=== PATIENT | female | born 1965 | race Caucasian/White ===

== ENCOUNTER 2016-09-15 15:42 | Inpatient (IN) | payer OTHER ==
[2016-09-15] VITALS (23 sets, daily range): BP systolic 120–177; BP diastolic 66–101
[~2016-09-15] VITALS: Ht 152.4 cm; Wt 110.9 kg
[2016-09-15] MEDS ORDERED: METHYLPREDNISOLONE SOD SUCC 125 MG/2 ML VIAL IV ONE (17:45)
[2016-09-15] MEDS ORDERED: SODIUM CHLORIDE 0.45% 1,000 ML IV SCH (17:45)
[2016-09-15] MEDS ORDERED: METHYLPREDNISOLONE SOD SUCC 1,000 MG in DEXT 5% WATER 100 ML IV SCH (20:00)
[2016-09-15] MEDS ORDERED: VASOPRESSIN 10 UNIT in SODIUM CHLORIDE 0.9% 99.5 ML IV SCH (20:00)
[2016-09-15 20:10] LABS: BASOPHILS % 0.2 % (0.0-2.0); HEMATOCRIT. 33.6 % (36.0-48.0); HEMOGLOBIN. 11.4 g/dL (12.0-16.0); MEAN CORPUSCULAR HEMOGLOBIN 30.9 pg (28.0-32.0); MEAN CORPUSCULAR VOLUME 90.8 fL (81.0-99.0); MEAN PLATELET VOLUME 9.7 fl (7.4-10.4); MONOCYTES % 4.2 % (2.0-8.0); NEUTROPHILS % 83.6 % (40.0-76.0); PLATELET 60 x1000/uL (130-400); RED CELL DISTRIBUTION WIDTH 14.7 % (11.6-14.6)
[2016-09-15 20:14] LABS: CHLORIDE 127 mEq/L (98-107)
[2016-09-15 20:15] LABS: PROTHROMBIN TIME 10.7 sec
[2016-09-15] MEDS: VASOPRESSIN 10 UNIT in SODIUM CHLORIDE 0.9% 99.5 ML IV SCH (20:19)
[2016-09-15 20:22] LABS: AMYLASE 163 IU/L (25-115); CARBON DIOXIDE 26 mEq/L (21-32); GAMMA GLUTAMYL TRANSPEPTIDASE 67 IU/L (7-32)
[2016-09-15 20:29] LABS: CREATINE KINASE MB FRACTION 5.1 ng/mL (0.5-3.6)
[2016-09-15] MEDS ORDERED: HETASTARCH/NORMAL SALINE 500 ML PLAST..BAG IV NR (20:30)
[2016-09-15 20:32] LABS: BG BASE EXCESS -0.5 mmol/L (-2.0-2.0); BG CARBOXYHEMOGLOBIN 0.3 % (0.5-1.5); BG DEOXYHEMOGLOBIN 4.4 % (0.0-5.0); BG FRACTION INSPIRED OXYGEN 100; BG HCO3 ACT 22.9 mmol/L (22.0-26.0); BG METHEMOGLOBIN 0.4 % (0.0-1.5); BG OXYGEN SATURATION 95.6 % (92.0-98.5); BG OXYHEMOGLOBIN 94.9 % (94.0-97.0); BG PCO2 33.7 mmHg (35.0-45.0); BG PO2 75.4 mmHg (75.0-100.0); BG SAMPLE SITE A-LINE; BG TIDAL VOLUME(mL) 500 mL; BG TOTAL HEMOGLOBIN 12.5 g/dL (12.0-18.0); BG VENT MODE VENT - A/C; BG VENT RATE 22 set
[2016-09-15 20:33] LABS: CREATINE KINASE 1657 IU/L (26-192)
[2016-09-15] MEDS ORDERED: HETASTARCH/NORMAL SALINE 500 ML IV NR (21:00)
[2016-09-15] MEDS: PIPERACILLIN/TAZ 3.375G PREMIX 50 ML IV SCH (21:37)
[2016-09-15] MEDS: ERYTHROMYCIN LACTOBIONATE 500 MG in SODIUM CHLORIDE 0.9% 100 ML IV SCH (21:39)
[2016-09-16] VITALS (106 sets, daily range): BP systolic 87–202; BP diastolic 49–115
[2016-09-16] MEDS ORDERED: CALCIUM GLUCONATE 100MG/ML 10ML VIAL IV NR ×2 (00:30→01:30)
[2016-09-16] MEDS: VASOPRESSIN 10 UNIT in SODIUM CHLORIDE 0.9% 99.5 ML IV SCH (00:32)
[2016-09-16] MEDS ORDERED: MAGNESIUM 2 G PREMIX 50 ML IV NR ×2 (01:00→17:00)
[2016-09-16] MEDS ORDERED: POTASSIUM PHOS,M-BASIC-D-BASIC 30 MMOL in SODIUM CHLORIDE 0.9% 500 ML IV NR (01:00)
[2016-09-16 01:24] LABS: BASOPHILS % 0.3 % (0.0-2.0); EOSINOPHILS % 0.1 % (0.0-5.0); HEMATOCRIT. 30.2 % (36.0-48.0); HEMOGLOBIN. 10.5 g/dL (12.0-16.0); LYMPHOCYTES % 12.3 % (20.0-50.0); MEAN CORPUSCULAR HEMOGLOBIN 31.4 pg (28.0-32.0); MEAN CORPUSCULAR VOLUME 90.4 fL (81.0-99.0); MEAN PLATELET VOLUME 9.9 fl (7.4-10.4); MONOCYTES % 3.9 % (2.0-8.0); NEUTROPHILS % 83.4 % (40.0-76.0); PLATELET 56 x1000/uL (130-400); RED BLOOD CELL COUNT 3.34 mill/uL (4.2-5.4); RED CELL DISTRIBUTION WIDTH 14.7 % (11.6-14.6)
[2016-09-16 01:32] LABS: INR 1.1; PARTIAL THROMBOPLASTIN TIME 30.3 sec (24.0-34.0)
[2016-09-16 01:54] LABS: BG BASE EXCESS -10.4 mmol/L (-2.0-2.0); BG CARBOXYHEMOGLOBIN 0.3 % (0.5-1.5); BG FRACTION INSPIRED OXYGEN 100; BG HCO3 ACT 13.5 mmol/L (22.0-26.0); BG METHEMOGLOBIN 0.6 % (0.0-1.5); BG OXYHEMOGLOBIN 98.1 % (94.0-97.0); BG PCO2 23.3 mmHg (35.0-45.0); BG PO2 378.1 mmHg (75.0-100.0); BG SAMPLE SITE A-LINE; BG TOTAL HEMOGLOBIN 7.7 g/dL (12.0-18.0); BG VENT MODE VENT - PCV; BG VENT RATE 10 set
[2016-09-16 01:55] LABS: AMYLASE 233 IU/L (25-115); CARBON DIOXIDE 24 mEq/L (21-32); CHLORIDE 126 mEq/L (98-107); GAMMA GLUTAMYL TRANSPEPTIDASE 76 IU/L (7-32); PHOSPHORUS 2.2 mg/dL (2.5-4.9); TROPONIN I 0.22 ng/mL (0.00-0.04)
[2016-09-16] MEDS ORDERED: METHYLPREDNISOLONE 125MG 250 MG in DEXT 5% WATER 100 ML IV SCH (02:00)
[2016-09-16 02:02] LABS: CREATINE KINASE MB FRACTION 4.6 ng/mL (0.5-3.6)
[2016-09-16 02:07] LABS: CREATINE KINASE 1494 IU/L (26-192)
[2016-09-16] MEDS: DEXT 5% IV SCH ×3 (02:48→17:55)
[2016-09-16] MEDS: WATER IV SCH ×3 (02:48→17:55)
[2016-09-16] MEDS: METHYLPREDNISOLONE IV SCH ×3 (02:48→17:55)
[2016-09-16] MEDS ORDERED: FUROSEMIDE 40MG/4ML VIAL IVP NR ×3 (03:00→16:00)
[2016-09-16] MEDS ORDERED: ALBUMIN HUMAN 25GM/100ML (25%) IV NR ×2 (03:30→17:00)
[2016-09-16] MEDS ORDERED: SODIUM CHLORIDE 0.9% IV SCH ×2 (04:12→04:45)
[2016-09-16] MEDS ORDERED: VASOPRESSIN IV SCH ×2 (04:12→04:45)
[2016-09-16] MEDS ORDERED: INSULIN REGULAR (HUMULIN R) UD 100 UNITS/ML SYR IV NR (04:30)
[2016-09-16] MEDS ORDERED: NOREPINEPHRINE 4 MG in DEXT 5% WATER 246 ML IV PRN (05:00)
[2016-09-16] MEDS ORDERED: DOBUTAMINE HCL 500 MG in DEXT 5% WATER 210 ML IV STA (05:12)
[2016-09-16] MEDS: ERYTHROMYCIN LACTOBIONATE 500 MG in SODIUM CHLORIDE 0.9% 100 ML IV SCH ×3 (05:19→22:10)
[2016-09-16] MEDS: PIPERACILLIN/TAZ 3.375G PREMIX 50 ML IV SCH ×3 (05:19→21:20)
[2016-09-16] MEDS ORDERED: CALCIUM GLUCONATE 100MG/ML 10ML VIAL IV STA (05:20)
[2016-09-16 05:42] LABS: BASOPHILS % 0.1 % (0.0-2.0); HEMATOCRIT. 31.4 % (36.0-48.0); HEMOGLOBIN. 10.8 g/dL (12.0-16.0); LYMPHOCYTES % 13.3 % (20.0-50.0); MEAN CORPUSCULAR HEMOGLOBIN 31.3 pg (28.0-32.0); MEAN CORPUSCULAR VOLUME 91.1 fL (81.0-99.0); MONOCYTES % 1.2 % (2.0-8.0); NEUTROPHILS % 85.4 % (40.0-76.0); PLATELET 54 x1000/uL (130-400); RED BLOOD CELL COUNT 3.45 mill/uL (4.2-5.4); RED CELL DISTRIBUTION WIDTH 14.4 % (11.6-14.6)
[2016-09-16 06:03] LABS: CHLORIDE 119 mEq/L (98-107)
[2016-09-16 06:08] LABS: CARBON DIOXIDE 25 mEq/L (21-32)
[2016-09-16] MEDS ORDERED: CALCIUM GLUCONATE 1,000 MG in SODIUM CHLORIDE 0.9% 50 ML IV ONE (06:30)
[2016-09-16] MEDS ORDERED: POTASSIUM CHLORIDE IV NR ×2 (06:30→17:00)
[2016-09-16] MEDS ORDERED: SODIUM CHLORIDE 0.9% IV NR ×2 (06:30→17:00)
[2016-09-16 06:52] LABS: AMYLASE 330 IU/L (25-115); CARBON DIOXIDE 22 mEq/L (21-32); CHLORIDE 120 mEq/L (98-107); PHOSPHORUS 5.8 mg/dL (2.5-4.9); TROPONIN I 0.17 ng/mL (0.00-0.04)
[2016-09-16] MEDS ORDERED: ALBUMIN HUMAN 25GM/100ML (25%) IV STA (06:52)
[2016-09-16 06:59] LABS: CREATINE KINASE MB FRACTION 3.6 ng/mL (0.5-3.6)
[2016-09-16 07:05] LABS: CREATINE KINASE 1208 IU/L (26-192); GAMMA GLUTAMYL TRANSPEPTIDASE 92 IU/L (7-32)
[2016-09-16 07:14] LABS: GLUCOSE URINE NEGATIVE (NEGATIVE); KETONES URINE NEGATIVE (NEGATIVE); LEUKOCYTE ESTERASE URINE NEGATIVE (NEGATIVE); NITRITE URINE NEGATIVE (NEGATIVE); OCCULT BLOOD URINE TRACE (NEGATIVE); PROTEIN URINE NEGATIVE (NEGATIVE); SPECIFIC GRAVITY URINE 1.008 (1.005-1.030); UROBILINOGEN URINE 0.2 E.U./dL (0.2-1.0)
[2016-09-16 07:22] LABS: CLARITY URINE CLEAR (CLEAR); COLOR URINE PALE YELLOW (YELLOW)
[2016-09-16 07:42] LABS: CLARITY URINE CLOUDY (CLEAR); COLOR URINE YELLOW (YELLOW); GLUCOSE URINE TRACE (NEGATIVE); KETONES URINE NEGATIVE (NEGATIVE); LEUKOCYTE ESTERASE URINE NEGATIVE (NEGATIVE); NITRITE URINE NEGATIVE (NEGATIVE); OCCULT BLOOD URINE 2+ (NEGATIVE); PROTEIN URINE 2+ (NEGATIVE); SPECIFIC GRAVITY URINE 1.047 (1.005-1.030); UROBILINOGEN URINE 0.2 E.U./dL (0.2-1.0)
[2016-09-16 08:20] LABS: BG CARBOXYHEMOGLOBIN 0.3 % (0.5-1.5); BG DEOXYHEMOGLOBIN 3.4 % (0.0-5.0); BG FRACTION INSPIRED OXYGEN 40; BG HCO3 ACT 22.3 mmol/L (22.0-26.0); BG METHEMOGLOBIN 0.4 % (0.0-1.5); BG OXYGEN SATURATION 96.6 % (92.0-98.5); BG OXYHEMOGLOBIN 95.9 % (94.0-97.0); BG PCO2 45.8 mmHg (35.0-45.0); BG PH 7.305 (7.350-7.450); BG SAMPLE SITE A-LINE; BG TOTAL HEMOGLOBIN 11.8 g/dL (12.0-18.0); BG VENT MODE VENT - PCV; BG VENT RATE 10 set
[2016-09-16] MEDS: INSULIN REGULAR (DRIP) 100 UNITS in SODIUM CHLORIDE 0.9% 99 ML IV PRN ×2 (08:49→17:56)
[2016-09-16 09:13] LABS: INR 1.1; PARTIAL THROMBOPLASTIN TIME 32.2 sec (24.0-34.0); PROTHROMBIN TIME 11.2 sec
[2016-09-16 12:00] LABS: CLARITY URINE CLEAR (CLEAR); COLOR URINE YELLOW (YELLOW); GLUCOSE URINE NEGATIVE (NEGATIVE); KETONES URINE NEGATIVE (NEGATIVE); LEUKOCYTE ESTERASE URINE NEGATIVE (NEGATIVE); NITRITE URINE NEGATIVE (NEGATIVE); OCCULT BLOOD URINE 2+ (NEGATIVE); PROTEIN URINE NEGATIVE (NEGATIVE); SPECIFIC GRAVITY URINE 1.011 (1.005-1.030); UROBILINOGEN URINE 0.2 E.U./dL (0.2-1.0)
[2016-09-16 13:11] LABS: BG BASE EXCESS 0.2 mmol/L (-2.0-2.0); BG CARBOXYHEMOGLOBIN 0.3 % (0.5-1.5); BG DEOXYHEMOGLOBIN 1.9 % (0.0-5.0); BG FRACTION INSPIRED OXYGEN 40; BG HCO3 ACT 25.6 mmol/L (22.0-26.0); BG METHEMOGLOBIN 0.2 % (0.0-1.5); BG OXYGEN SATURATION 98.1 % (92.0-98.5); BG OXYHEMOGLOBIN 97.6 % (94.0-97.0); BG PCO2 44.5 mmHg (35.0-45.0); BG PH 7.377 (7.350-7.450); BG PO2 132.2 mmHg (75.0-100.0); BG SAMPLE SITE A-LINE; BG TOTAL HEMOGLOBIN 11.1 g/dL (12.0-18.0); BG VENT MODE VENT - PCV; BG VENT RATE 10 set
[2016-09-16 13:14] LABS: BASOPHILS % 0.1 % (0.0-2.0); EOSINOPHILS % 0.1 % (0.0-5.0); HEMATOCRIT. 30.6 % (36.0-48.0); HEMOGLOBIN. 10.3 g/dL (12.0-16.0); LYMPHOCYTES % 13.8 % (20.0-50.0); MEAN CORPUSCULAR HEMOGLOBIN 30.6 pg (28.0-32.0); MEAN CORPUSCULAR VOLUME 90.9 fL (81.0-99.0); MEAN PLATELET VOLUME 10.2 fl (7.4-10.4); MONOCYTES % 2.5 % (2.0-8.0); NEUTROPHILS % 83.5 % (40.0-76.0); RED BLOOD CELL COUNT 3.37 mill/uL (4.2-5.4); RED CELL DISTRIBUTION WIDTH 14.7 % (11.6-14.6)
[2016-09-16 13:21] LABS: PLATELET 49 x1000/uL (130-400)
[2016-09-16] MEDS ORDERED: LIDOCAINE HCL 1% 20ML VIAL (Pyxis) INJ ONE (13:30)
[2016-09-16] MEDS ORDERED: IODIXANOL 320MG/ML 100 ML BOTTLE IV ONE (13:31)
[2016-09-16 13:45] LABS: AMYLASE 357 IU/L (25-115); CARBON DIOXIDE 27 mEq/L (21-32); CHLORIDE 114 mEq/L (98-107); GAMMA GLUTAMYL TRANSPEPTIDASE 114 IU/L (7-32); PHOSPHORUS 4.4 mg/dL (2.5-4.9); TROPONIN I 0.12 ng/mL (0.00-0.04)
[2016-09-16 13:49] LABS: CREATINE KINASE 949 IU/L (26-192); CREATINE KINASE MB FRACTION 2.8 ng/mL (0.5-3.6)
[2016-09-16 13:53] LABS: PARTIAL THROMBOPLASTIN TIME 32.6 sec (24.0-34.0); PROTHROMBIN TIME 10.8 sec
[2016-09-16 17:39] LABS: BG BASE EXCESS 2.6 mmol/L (-2.0-2.0); BG CARBOXYHEMOGLOBIN 0.3 % (0.5-1.5); BG DEOXYHEMOGLOBIN 2.1 % (0.0-5.0); BG FRACTION INSPIRED OXYGEN 40; BG HCO3 ACT 26.4 mmol/L (22.0-26.0); BG METHEMOGLOBIN 0.3 % (0.0-1.5); BG OXYGEN SATURATION 97.9 % (92.0-98.5); BG OXYHEMOGLOBIN 97.3 % (94.0-97.0); BG PCO2 37.4 mmHg (35.0-45.0); BG PH 7.466 (7.350-7.450); BG SAMPLE SITE A-LINE; BG TOTAL HEMOGLOBIN 10.3 g/dL (12.0-18.0); BG VENT MODE VENT - A/C
[2016-09-16] MEDS: PETROLATUM,WHITE OPHTH OINT 3.5GM BOTHEYE SCH (17:55)
[2016-09-16 18:41] LABS: BASOPHILS % 0.2 % (0.0-2.0); HEMATOCRIT. 29.3 % (36.0-48.0); HEMOGLOBIN. 10.1 g/dL (12.0-16.0); LYMPHOCYTES % 13.1 % (20.0-50.0); MEAN CORPUSCULAR VOLUME 90.1 fL (81.0-99.0); MEAN PLATELET VOLUME 9.8 fl (7.4-10.4); MONOCYTES % 3.6 % (2.0-8.0); NEUTROPHILS % 83.1 % (40.0-76.0); RED BLOOD CELL COUNT 3.25 mill/uL (4.2-5.4); RED CELL DISTRIBUTION WIDTH 14.4 % (11.6-14.6)
[2016-09-16 18:48] LABS: PLATELET 42 x1000/uL (130-400)
[2016-09-16 18:49] LABS: CLARITY URINE CLEAR (CLEAR); COLOR URINE YELLOW (YELLOW); GLUCOSE URINE NEGATIVE (NEGATIVE); KETONES URINE NEGATIVE (NEGATIVE); LEUKOCYTE ESTERASE URINE NEGATIVE (NEGATIVE); NITRITE URINE NEGATIVE (NEGATIVE); OCCULT BLOOD URINE 2+ (NEGATIVE); PROTEIN URINE NEGATIVE (NEGATIVE); SPECIFIC GRAVITY URINE 1.014 (1.005-1.030); UROBILINOGEN URINE 0.2 E.U./dL (0.2-1.0)
[2016-09-16 18:57] LABS: INR 1.1; PARTIAL THROMBOPLASTIN TIME 34.1 sec (24.0-34.0)
[2016-09-16 19:10] LABS: CARBON DIOXIDE 30 mEq/L (21-32); CHLORIDE 111 mEq/L (98-107)
[2016-09-16 19:13] LABS: GAMMA GLUTAMYL TRANSPEPTIDASE 123 IU/L (7-32); PHOSPHORUS 3.7 mg/dL (2.5-4.9)
[2016-09-16 19:15] LABS: AMYLASE 333 IU/L (25-115); CREATINE KINASE 772 IU/L (26-192); CREATINE KINASE MB FRACTION 2.2 ng/mL (0.5-3.6)
[2016-09-16 20:15] LABS: BG BASE EXCESS 4.1 mmol/L (-2.0-2.0); BG CARBOXYHEMOGLOBIN 0.3 % (0.5-1.5); BG DEOXYHEMOGLOBIN 4.5 % (0.0-5.0); BG FRACTION INSPIRED OXYGEN 30; BG HCO3 ACT 28.5 mmol/L (22.0-26.0); BG METHEMOGLOBIN 0.3 % (0.0-1.5); BG OXYGEN SATURATION 95.5 % (92.0-98.5); BG OXYHEMOGLOBIN 94.9 % (94.0-97.0); BG PH 7.449 (7.350-7.450); BG PO2 79.2 mmHg (75.0-100.0); BG SAMPLE SITE A-LINE; BG TOTAL HEMOGLOBIN 11.7 g/dL (12.0-18.0); BG VENT MODE VENT - PCV; BG VENT RATE 8.5 set
[2016-09-16] MEDS ORDERED: ACETAZOLAMIDE SODIUM 500MG/VIAL IV ONE (22:00)
[2016-09-16] MEDS ORDERED: ALBUMIN HUMAN 25GM/100ML (25%) IV ONE (22:00)
[2016-09-16] MEDS ORDERED: INSULIN REGULAR (HUMULIN R) 300UNITS/3ML IV SCH (22:00)
[2016-09-16] MEDS ORDERED: FUROSEMIDE 40MG/4ML VIAL IVP SCH (23:00)
[2016-09-17] VITALS (97 sets, daily range): BP systolic 86–189; BP diastolic 53–110
[2016-09-17 00:32] LABS: BG CARBOXYHEMOGLOBIN 0.3 % (0.5-1.5); BG DEOXYHEMOGLOBIN 2.8 % (0.0-5.0); BG FRACTION INSPIRED OXYGEN 30; BG HCO3 ACT 27.1 mmol/L (22.0-26.0); BG METHEMOGLOBIN 0.4 % (0.0-1.5); BG OXYGEN SATURATION 97.2 % (92.0-98.5); BG OXYHEMOGLOBIN 96.5 % (94.0-97.0); BG PCO2 39.4 mmHg (35.0-45.0); BG PH 7.455 (7.350-7.450); BG PO2 100.1 mmHg (75.0-100.0); BG SAMPLE SITE A-LINE; BG TOTAL HEMOGLOBIN 10.7 g/dL (12.0-18.0); BG VENT MODE VENT BILEVEL; BG VENT RATE 8 set
[2016-09-17 00:48] LABS: BASOPHILS % 0.3 % (0.0-2.0); EOSINOPHILS % 0.1 % (0.0-5.0); HEMATOCRIT. 27.7 % (36.0-48.0); HEMOGLOBIN. 9.8 g/dL (12.0-16.0); LYMPHOCYTES % 12.1 % (20.0-50.0); MEAN CORPUSCULAR HEMOGLOBIN 31.5 pg (28.0-32.0); MEAN CORPUSCULAR VOLUME 89.5 fL (81.0-99.0); MEAN PLATELET VOLUME 10.3 fl (7.4-10.4); MONOCYTES % 4.5 % (2.0-8.0); RED CELL DISTRIBUTION WIDTH 14.4 % (11.6-14.6)
[2016-09-17 00:48] LABS: CLARITY URINE CLEAR (CLEAR); COLOR URINE YELLOW (YELLOW); GLUCOSE URINE NEGATIVE (NEGATIVE); KETONES URINE NEGATIVE (NEGATIVE); LEUKOCYTE ESTERASE URINE NEGATIVE (NEGATIVE); NITRITE URINE NEGATIVE (NEGATIVE); OCCULT BLOOD URINE 1+ (NEGATIVE); PROTEIN URINE NEGATIVE (NEGATIVE); UROBILINOGEN URINE 0.2 E.U./dL (0.2-1.0)
[2016-09-17 00:53] LABS: PLATELET 49 x1000/uL (130-400)
[2016-09-17 01:00] LABS: INR 1.1; PARTIAL THROMBOPLASTIN TIME 33.7 sec (24.0-34.0); PROTHROMBIN TIME 10.9 sec
[2016-09-17] MEDS: WATER IV SCH ×3 (01:34→18:05)
[2016-09-17] MEDS: DEXT 5% IV SCH ×3 (01:34→18:05)
[2016-09-17] MEDS: METHYLPREDNISOLONE IV SCH ×3 (01:34→18:05)
[2016-09-17 02:45] LABS: AMYLASE 297 IU/L (25-115); CARBON DIOXIDE 31 mEq/L (21-32); CHLORIDE 109 mEq/L (98-107); CREATINE KINASE 563 IU/L (26-192); GAMMA GLUTAMYL TRANSPEPTIDASE 122 IU/L (7-32); PHOSPHORUS 4.5 mg/dL (2.5-4.9); TROPONIN I 0.09 ng/mL (0.00-0.04)
[2016-09-17 02:47] LABS: CREATINE KINASE MB FRACTION 1.3 ng/mL (0.5-3.6)
[2016-09-17] MEDS ORDERED: INSULIN REGULAR (HUMULIN R) 300UNITS/3ML IV NR ×2 (03:00→07:15)
[2016-09-17] MEDS ORDERED: WATER IV NR (04:00)
[2016-09-17] MEDS ORDERED: DEXT 5% IV NR (04:00)
[2016-09-17] MEDS ORDERED: POTASSIUM CHLORIDE IV NR (04:00)
[2016-09-17] MEDS: ERYTHROMYCIN LACTOBIONATE 500 MG in SODIUM CHLORIDE 0.9% 100 ML IV SCH ×3 (05:28→21:01)
[2016-09-17 05:37] LABS: INR 1.1; PARTIAL THROMBOPLASTIN TIME 31.7 sec (24.0-34.0)
[2016-09-17 05:45] LABS: AMYLASE 272 IU/L (25-115); CARBON DIOXIDE 29 mEq/L (21-32); CHLORIDE 109 mEq/L (98-107); CREATINE KINASE 477 IU/L (26-192); GAMMA GLUTAMYL TRANSPEPTIDASE 120 IU/L (7-32); PHOSPHORUS 4.8 mg/dL (2.5-4.9); TROPONIN I 0.08 ng/mL (0.00-0.04)
[2016-09-17 05:48] LABS: BASOPHILS % 0.1 % (0.0-2.0); HEMATOCRIT. 27.6 % (36.0-48.0); HEMOGLOBIN. 9.5 g/dL (12.0-16.0); LYMPHOCYTES % 10.5 % (20.0-50.0); MEAN CORPUSCULAR VOLUME 90.3 fL (81.0-99.0); MEAN PLATELET VOLUME 9.6 fl (7.4-10.4); MONOCYTES % 4.1 % (2.0-8.0); NEUTROPHILS % 85.3 % (40.0-76.0); PLATELET 54 x1000/uL (130-400); RED BLOOD CELL COUNT 3.06 mill/uL (4.2-5.4); RED CELL DISTRIBUTION WIDTH 14.4 % (11.6-14.6)
[2016-09-17] MEDS: PIPERACILLIN/TAZ 3.375G PREMIX 50 ML IV SCH ×3 (05:48→21:56)
[2016-09-17 05:52] LABS: CREATINE KINASE MB FRACTION 0.7 ng/mL (0.5-3.6)
[2016-09-17 06:24] LABS: BG BASE EXCESS 0.7 mmol/L (-2.0-2.0); BG CARBOXYHEMOGLOBIN 0.3 % (0.5-1.5); BG DEOXYHEMOGLOBIN 3.5 % (0.0-5.0); BG FRACTION INSPIRED OXYGEN 30; BG METHEMOGLOBIN 0.4 % (0.0-1.5); BG OXYGEN SATURATION 96.5 % (92.0-98.5); BG OXYHEMOGLOBIN 95.8 % (94.0-97.0); BG PCO2 39.1 mmHg (35.0-45.0); BG PH 7.424 (7.350-7.450); BG SAMPLE SITE A-LINE; BG TOTAL HEMOGLOBIN 11.6 g/dL (12.0-18.0); BG VENT RATE 8 set
[2016-09-17 06:36] LABS: CLARITY URINE CLEAR (CLEAR); COLOR URINE YELLOW (YELLOW); GLUCOSE URINE NEGATIVE (NEGATIVE); KETONES URINE NEGATIVE (NEGATIVE); LEUKOCYTE ESTERASE URINE NEGATIVE (NEGATIVE); NITRITE URINE NEGATIVE (NEGATIVE); OCCULT BLOOD URINE TRACE (NEGATIVE); PH URINE 6.5 (4.5-8.0); PROTEIN URINE 1+ (NEGATIVE); SPECIFIC GRAVITY URINE 1.027 (1.005-1.030); UROBILINOGEN URINE 0.2 E.U./dL (0.2-1.0)
[2016-09-17] MEDS ORDERED: ACETAZOLAMIDE SODIUM 500MG/VIAL IV NR (07:00)
[2016-09-17] MEDS ORDERED: ALBUMIN HUMAN 25GM/100ML (25%) IV NR (07:00)
[2016-09-17] MEDS: BLOOD SUGAR DIAGNOSTIC STRIP TEST SCH ×16 (07:29→23:10)
[2016-09-17] MEDS ORDERED: FUROSEMIDE 40MG/4ML VIAL IVP NR (07:30)
[2016-09-17] MEDS ORDERED: DEXTROSE 50% WATER 50ML SYRINGE IV PRN ×2 (07:30)
[2016-09-17] MEDS: INSULIN REGULAR (DRIP) 100 UNITS in SODIUM CHLORIDE 0.9% 99 ML IV SCH ×2 (08:02→20:49)
[2016-09-17] MEDS: PETROLATUM,WHITE OPHTH OINT 3.5GM BOTHEYE SCH ×2 (08:21→17:04)
[2016-09-17 08:52] LABS: BG BASE EXCESS 1.5 mmol/L (-2.0-2.0); BG CARBOXYHEMOGLOBIN 0.2 % (0.5-1.5); BG DEOXYHEMOGLOBIN 0.8 % (0.0-5.0); BG FRACTION INSPIRED OXYGEN 100; BG HCO3 ACT 26.6 mmol/L (22.0-26.0); BG METHEMOGLOBIN 0.2 % (0.0-1.5); BG OXYGEN SATURATION 99.2 % (92.0-98.5); BG OXYHEMOGLOBIN 98.8 % (94.0-97.0); BG PCO2 44.3 mmHg (35.0-45.0); BG PH 7.397 (7.350-7.450); BG SAMPLE SITE A-LINE; BG TOTAL HEMOGLOBIN 9.9 g/dL (12.0-18.0); BG VENT MODE BILEVEL
[2016-09-17] MEDS ORDERED: LIDOCAINE HCL 2% JELLY 5ML ONE (11:16)
[2016-09-17] MEDS ORDERED: LIDOCAINE HCL 5% OINT 35GM/TUBE TOP ONE (11:17)
[2016-09-17 11:33] LABS: BG BASE EXCESS -1.1 mmol/L (-2.0-2.0); BG CARBOXYHEMOGLOBIN 0.3 % (0.5-1.5); BG DEOXYHEMOGLOBIN 7.1 % (0.0-5.0); BG FRACTION INSPIRED OXYGEN 40; BG HCO3 ACT 24.7 mmol/L (22.0-26.0); BG METHEMOGLOBIN 0.4 % (0.0-1.5); BG OXYGEN SATURATION 92.8 % (92.0-98.5); BG OXYHEMOGLOBIN 92.2 % (94.0-97.0); BG PCO2 46.1 mmHg (35.0-45.0); BG PH 7.347 (7.350-7.450); BG PO2 75.3 mmHg (75.0-100.0); BG SAMPLE SITE A-LINE; BG TIDAL VOLUME(mL) 700 mL; BG TOTAL HEMOGLOBIN 10.3 g/dL (12.0-18.0); BG VENT MODE VENT - PCV; BG VENT RATE 10 set
[2016-09-17 12:03] LABS: HEMATOCRIT. 28.6 % (36.0-48.0); HEMOGLOBIN. 9.5 g/dL (12.0-16.0); MEAN CORPUSCULAR HEMOGLOBIN 30.3 pg (28.0-32.0); MEAN CORPUSCULAR VOLUME 90.9 fL (81.0-99.0); MEAN PLATELET VOLUME 10.8 fl (7.4-10.4); RED BLOOD CELL COUNT 3.15 mill/uL (4.2-5.4); RED CELL DISTRIBUTION WIDTH 14.5 % (11.6-14.6)
[2016-09-17 12:08] LABS: PLATELET 47 x1000/uL (130-400)
[2016-09-17 12:12] LABS: CARBON DIOXIDE 31 mEq/L (21-32); CHLORIDE 108 mEq/L (98-107); GAMMA GLUTAMYL TRANSPEPTIDASE 129 IU/L (7-32); PHOSPHORUS 4.6 mg/dL (2.5-4.9); TROPONIN I 0.08 ng/mL (0.00-0.04)
[2016-09-17 12:17] LABS: BG BASE EXCESS 2.4 mmol/L (-2.0-2.0); BG CARBOXYHEMOGLOBIN 0.2 % (0.5-1.5); BG DEOXYHEMOGLOBIN 1.3 % (0.0-5.0); BG HCO3 ACT 28.1 mmol/L (22.0-26.0); BG METHEMOGLOBIN 0.4 % (0.0-1.5); BG OXYGEN SATURATION 98.7 % (92.0-98.5); BG OXYHEMOGLOBIN 98.1 % (94.0-97.0); BG PCO2 49.2 mmHg (35.0-45.0); BG PH 7.375 (7.350-7.450); BG PIP 18 cmH2O; BG PO2 231.6 mmHg (75.0-100.0); BG SAMPLE SITE A-LINE; BG TIDAL VOLUME(mL) 700 mL; BG TOTAL HEMOGLOBIN 9.7 g/dL (12.0-18.0); BG VENT MODE VENT - PCV; BG VENT RATE 10 set
[2016-09-17 12:17] LABS: PARTIAL THROMBOPLASTIN TIME 32.3 sec (24.0-34.0); PROTHROMBIN TIME 10.8 sec
[2016-09-17 12:19] LABS: AMYLASE 253 IU/L (25-115); CREATINE KINASE 416 IU/L (26-192); CREATINE KINASE MB FRACTION < 0.5 ng/mL (0.5-3.6)
[2016-09-17] MEDS ORDERED: KCL 20MEQ/100ML PREMIX 100 ML IV NR (13:00)
[2016-09-17] MEDS ORDERED: POTASSIUM CHLORIDE INJ 40 MEQ in DEXT 5% WATER 250 ML IV NR (13:30)
[2016-09-17 14:44] LABS: CLARITY URINE CLEAR (CLEAR); COLOR URINE YELLOW (YELLOW); GLUCOSE URINE NEGATIVE (NEGATIVE); KETONES URINE NEGATIVE (NEGATIVE); LEUKOCYTE ESTERASE URINE NEGATIVE (NEGATIVE); NITRITE URINE NEGATIVE (NEGATIVE); OCCULT BLOOD URINE 1+ (NEGATIVE); PH URINE 8.5 (4.5-8.0); PROTEIN URINE 1+ (NEGATIVE); SPECIFIC GRAVITY URINE 1.017 (1.005-1.030); UROBILINOGEN URINE 0.2 E.U./dL (0.2-1.0)
[2016-09-17 14:54] LABS: NUCLEATED RED BLOOD CELLS 1 /100 WBC; PLATELET ESTIMATE MARKEDLY DECREASED
[2016-09-17] MEDS: VASOPRESSIN 10 UNIT in SODIUM CHLORIDE 0.9% 99.5 ML IV SCH ×2 (18:00→18:06)
[2016-09-17 18:55] LABS: BASOPHILS % 0.1 % (0.0-2.0); EOSINOPHILS % 0.1 % (0.0-5.0); HEMATOCRIT. 27.5 % (36.0-48.0); HEMOGLOBIN. 9.2 g/dL (12.0-16.0); MEAN CORPUSCULAR HEMOGLOBIN 30.3 pg (28.0-32.0); MEAN CORPUSCULAR VOLUME 90.5 fL (81.0-99.0); MEAN PLATELET VOLUME 10.5 fl (7.4-10.4); MONOCYTES % 4.9 % (2.0-8.0); NEUTROPHILS % 86.9 % (40.0-76.0); RED BLOOD CELL COUNT 3.04 mill/uL (4.2-5.4); RED CELL DISTRIBUTION WIDTH 14.5 % (11.6-14.6)
[2016-09-17 19:05] LABS: CHLORIDE 108 mEq/L (98-107)
[2016-09-17 19:09] LABS: PROTHROMBIN TIME 10.7 sec
[2016-09-17 19:10] LABS: CARBON DIOXIDE 29 mEq/L (21-32)
[2016-09-17 19:14] LABS: AMYLASE 248 IU/L (25-115); CREATINE KINASE 364 IU/L (26-192); GAMMA GLUTAMYL TRANSPEPTIDASE 127 IU/L (7-32); PHOSPHORUS 4.4 mg/dL (2.5-4.9); TROPONIN I 0.06 ng/mL (0.00-0.04)
[2016-09-17 19:20] LABS: CREATINE KINASE MB FRACTION 0.7 ng/mL (0.5-3.6)
[2016-09-17 20:06] LABS: CLARITY URINE CLEAR (CLEAR); COLOR URINE YELLOW (YELLOW); GLUCOSE URINE NEGATIVE (NEGATIVE); KETONES URINE NEGATIVE (NEGATIVE); LEUKOCYTE ESTERASE URINE NEGATIVE (NEGATIVE); NITRITE URINE NEGATIVE (NEGATIVE); OCCULT BLOOD URINE NEGATIVE (NEGATIVE); PH URINE 8.5 (4.5-8.0); PROTEIN URINE 1+ (NEGATIVE); SPECIFIC GRAVITY URINE 1.028 (1.005-1.030)
[2016-09-17 20:09] LABS: PLATELET 48 x1000/uL (130-400)
[2016-09-17] MEDS ORDERED: VASOPRESSIN 100 UNIT in SODIUM CHLORIDE 0.9% 99.5 ML IV SCH (21:30)
[2016-09-17] MEDS ORDERED: PIPERACILLIN/TAZ 3.375G PREMIX 50 ML IV SCH (22:00)
[2016-09-17] MEDS ORDERED: POTASSIUM CHLORIDE INJ 60 MEQ in DEXT 5% WATER 300 ML IV NR (23:30)
[2016-09-18] VITALS (14 sets, daily range): BP systolic 95–145; BP diastolic 50–93
[2016-09-18 00:12] LABS: BG BASE EXCESS 0.8 mmol/L (-2.0-2.0); BG CARBOXYHEMOGLOBIN 0.3 % (0.5-1.5); BG DEOXYHEMOGLOBIN 1.5 % (0.0-5.0); BG FRACTION INSPIRED OXYGEN 40; BG HCO3 ACT 25.6 mmol/L (22.0-26.0); BG METHEMOGLOBIN 0.4 % (0.0-1.5); BG OXYGEN SATURATION 98.5 % (92.0-98.5); BG OXYHEMOGLOBIN 97.8 % (94.0-97.0); BG PCO2 41.8 mmHg (35.0-45.0); BG PH 7.405 (7.350-7.450); BG PO2 152.9 mmHg (75.0-100.0); BG SAMPLE SITE A-LINE; BG TOTAL HEMOGLOBIN 10.9 g/dL (12.0-18.0); BG VENT MODE VENT - A/C
[2016-09-18 00:31] LABS: BASOPHILS % 0.1 % (0.0-2.0); HEMOGLOBIN. 9.3 g/dL (12.0-16.0); LYMPHOCYTES % 8.6 % (20.0-50.0); MEAN CORPUSCULAR VOLUME 90.1 fL (81.0-99.0); MEAN PLATELET VOLUME 10.9 fl (7.4-10.4); MONOCYTES % 4.6 % (2.0-8.0); NEUTROPHILS % 86.7 % (40.0-76.0); RED CELL DISTRIBUTION WIDTH 14.5 % (11.6-14.6)
[2016-09-18 00:39] LABS: PROTHROMBIN TIME 10.8 sec
[2016-09-18 00:41] LABS: CLARITY URINE CLEAR (CLEAR); COLOR URINE YELLOW (YELLOW); GLUCOSE URINE NEGATIVE (NEGATIVE); KETONES URINE NEGATIVE (NEGATIVE); LEUKOCYTE ESTERASE URINE NEGATIVE (NEGATIVE); NITRITE URINE NEGATIVE (NEGATIVE); OCCULT BLOOD URINE NEGATIVE (NEGATIVE); PH URINE 8.5 (4.5-8.0); PROTEIN URINE 1+ (NEGATIVE); SPECIFIC GRAVITY URINE 1.029 (1.005-1.030)
[2016-09-18 00:43] LABS: AMYLASE 251 IU/L (25-115); CARBON DIOXIDE 27 mEq/L (21-32); CHLORIDE 110 mEq/L (98-107); GAMMA GLUTAMYL TRANSPEPTIDASE 137 IU/L (7-32); PHOSPHORUS 3.6 mg/dL (2.5-4.9); TROPONIN I 0.04 ng/mL (0.00-0.04)
[2016-09-18 00:45] LABS: PLATELET 50 x1000/uL (130-400)
[2016-09-18] MEDS: BLOOD SUGAR DIAGNOSTIC STRIP TEST SCH ×2 (00:47→02:24)
[2016-09-18 00:51] LABS: CREATINE KINASE 314 IU/L (26-192); CREATINE KINASE MB FRACTION < 0.5 ng/mL (0.5-3.6)
[2016-09-18] MEDS ORDERED: HEPARIN 5000 UNITS/ML VIAL ONE (01:44)
[2016-09-18] MEDS ORDERED: MANNITOL 20% 500 ML IV ONE ×2 (01:45→01:50)
[2016-09-18] MEDS ORDERED: FUROSEMIDE 40MG/4ML VIAL ONE (01:47)
[2016-09-18] MEDS: METHYLPREDNISOLONE IV SCH (02:24)
[2016-09-18] MEDS: WATER IV SCH (02:24)
[2016-09-18] MEDS: DEXT 5% IV SCH (02:24)
[2016-09-18] MEDS ORDERED: ROCURONIUM BROMIDE 10MG/ML VIAL 5ML IV ONE (04:17)
== END 2016-09-18 03:45 | disposition expired | DRG 260 ==
LOC: U 15:42 → MICUNO 15:45
PROC: 4A023N8 Measurement of Cardiac Sampling and Pressure, Bilateral, Percutaneous Approach (ICD-10-PCS; principal; 2016-09-16)
PROC: B2111ZZ Fluoroscopy of Multiple Coronary Arteries using Low Osmolar Contrast (ICD-10-PCS; 2016-09-16)
PROC: 0FT00ZZ Resection of Liver, Open Approach (ICD-10-PCS; 2016-09-16)
PROC: 0TT20ZZ Resection of Bilateral Kidneys, Open Approach (ICD-10-PCS; 2016-09-16)
PROC: 0FTG0ZZ Resection of Pancreas, Open Approach (ICD-10-PCS; 2016-09-16)
PROC: B2151ZZ Fluoroscopy of Left Heart using Low Osmolar Contrast (ICD-10-PCS; 2016-09-16)
PROC: 0BJ08ZZ Inspection of Tracheobronchial Tree, Via Natural or Artificial Opening Endoscopic (ICD-10-PCS; 2016-09-17)
DX: Z52.6 Liver donor (principal); I60.9 Nontraumatic subarachnoid hemorrhage, unspecified; I27.2 Other secondary pulmonary hypertension; Z52.89 Donor of other specified organs or tissues; Z52.4 Kidney donor
CPT/HCPCS: 36415; 36600; 71010; 71250; 74176; 76700; 80048; 80053; 81001; 81003; 82150; 82248; 82330; 82375; 82550; 82553; 82805; 82962; 82977; 83605; 83615; 83690; 83735; 84100; 84484; 85025; 85610; 85730; 86850; 86900; 87040; 87070; 87077; 87086; 87106; 87205; 93005; 93306; 93460; 94003; 94640; C1726; C1769; C1887; C1893; J0610; J1120; J1250; J1364; J1644; J1815; J1940; J2543; J2930; J3475; J3480; J3490; J7040; J7050; J7060; P9047; Q9967